=== PATIENT | female | born 1950 | race Caucasian/White ===

== ENCOUNTER 2018-02-08 13:14 | Inpatient (IN) | payer MEDICARE ==
[~2018-02-08] VITALS: Ht 177.8 cm; Wt 70.5 kg
--- NOTE | ~2018-02-08 | PR ---
[place], [place] PROGRESS NOTE NAME: SANDRA IVORY UNIT #: [id number] ROOM: 503 DOCTOR: JESSICA DOWNEY,AYDEN BIRTHDATE: [birth year] DOS: 02/15/2018 REASON FOR VISIT: Coagulopathy, paroxysmal atrial fibrillation and valvular heart disease. SUBJECTIVE: The patient is getting better. Denies any chest pain or shortness of breath. She wanted to go home today. Denies any palpations PND. No orthopnea. No nausea, vomiting, diarrhea. No fever and chills. No cough, no hemoptysis. REVIEW OF SYSTEMS: Review of the 10-system negative except as mentioned above. RHYTHM STRIPS: The patient was in more atrial fibrillation on the monitor with controlled ventricular rates. PHYSICAL EXAMINATION: VITAL SIGNS: Blood pressure 122/78, pulse 96, respiratory rate 18, weight 70.5 kilos. GENERAL: Alert, comfortable, in no acute distress. HEENT: Pupils are round and equal. No jaundice. NECK: Supple. The patient had a slightly elevated JVD, no carotid bruit. CHEST: Nontender. LUNGS: Clear to auscultation bilaterally. HEART: Irregular, no S3, grade 2/6 systolic murmur. No palpable thrills. ABDOMEN: Benign, nontender. Bowel sounds normal. EXTREMITIES: Showed 1+ edema, left leg. Distal pulses are palpable. SKIN: Warm and dry. No cyanosis, no clubbing. RECTAL: Deferred. GENITOURINARY: Deferred. MEDICATIONS AND ALLERGIES: Reviewed. IMAGING: Echo from 02/12/2018 reviewed. IMPRESSION: 1. Coagulopathy. 2. Left leg deep venous thrombosis. 3. Left ventricular dysfunction by recent echo. 4. Valvular heart disease with severe mitral and tricuspid regurgitation. 5. Pulmonary hypertension. 6. End-stage renal disease, on hemodialysis. 7. Anemia. 8. History of vasculitis with positive ANCA. RECOMMENDATIONS: 1. Clinically, she appears to be stable. 2. I will discontinue her Cardizem due to LV dysfunction. 3. Increase her beta-blockers and monitor blood pressure and heart rates. 4. Add low-dose JESSICA inhibitors for LV dysfunction. 5. Keep the INR in the therapeutic range for her atrial fibrillation and DVT. [place], [place] PROGRESS NOTE NAME: SANDRA IVORY UNIT #: [id number] ROOM: [facility] DOCTOR: JESSICA DOWNEY,AYDEN BIRTHDATE: [birth year] 6. I would discuss with her tomorrow for LifeVest and also referral to [facility] for significant valvular heart disease. 7. There is no family at bedside at the time of examination. AYDEN LOPEZ MD CM:PNTRANS 8 AYDEN LOPEZ MD 02/16/188 interface
--- NOTE | ~2018-02-08 | PR ---
[place], [place] PROGRESS NOTE NAME: SANDRA IVORY UNIT #: [id number] ROOM: 503 DOCTOR: ENIO CANTU MD BIRTHDATE: [birth year] DOS: 02/13/2018 NEPHROLOGY FOLLOWUP NOTE SUBJECTIVE: The patient was seen and examined. She was awake and alert. She just completed dialysis. She tells me her breathing has improved significantly. She is on room air. She had a CTA which was negative for PE today. She is in no acute distress and hopes to go home even today. PHYSICAL EXAMINATION: VITAL SIGNS: Temperature 98.2, pulse 92, respiratory rate 20. Systolic blood pressures in the 110s. GENERAL: She is awake and alert, in no acute distress. HEENT: Shows no JVD. LUNGS: Had diminished breath sounds with no wheeze. HEART: S1, S2. No rub, thrill or gallop. ABDOMEN: Soft, nontender. EXTREMITIES: Had 1+ edema. SKIN: Showed no rash. LABORATORY DATA: INR was 1.8. CT scan of the chest showed no evidence of a pulmonary embolism. It did note moderate sized bilateral pleural effusions. ASSESSMENT AND PLAN: 1. Acute kidney injury, on dialysis Thursday and Thursday. It is unclear if the patient is now considered end-stage renal disease at this point. She has a history of an ANCA vasculitis. The patient will continue dialysis on Thursday and Thursday. She completed dialysis today. Diuretics can continue since she does still make urine. 2. Anemia. Transfuse as needed. 3. Atrial fibrillation. Cardiology is managing. 4. Recent chest discomfort with dyspnea. Her CTA was negative for pulmonary embolism. The patient reports to me that she may be having an IVC filter. I am not clear of details. She is on anticoagulation presently. [place], [place] PROGRESS NOTE NAME: SANDRA IVORY UNIT #: [id number] ROOM: 503 DOCTOR: ENIO CANTU MD BIRTHDATE: [birth year] ENIO CANTU MD CM:PNTRANS [phone] ENIO CANTU MD 02/14/18 0229 interface
--- NOTE | ~2018-02-08 | PR ---
[place], [place] PROGRESS NOTE NAME: SANDRA IVORY UNIT #: [id number] ROOM: 503 DOCTOR: ENIO CANTU MD BIRTHDATE: [birth year] DOS: 02/14/2018 SUBJECTIVE: The patient was seen and examined. She is awake and alert. She denies shortness of breath or chest pain. She states she feels well. She has good appetite. She wants to go home. OBJECTIVE: VITAL SIGNS: Temperature 97.5, pulse 81, respiratory rate 20, blood pressure 116/63. HEENT: Shows no JVD. LUNGS: Fairly clear with diminished breath sounds at the bases. HEART: S1, S2. No rub, thrill or gallop. ABDOMEN: Soft, nontender. EXTREMITIES: Had trace to 1+ edema. SKIN: Showed no rash. LABORATORY DATA: Hemoglobin 9.3, white count of 4.6, platelets 193. Sodium 138, potassium 3.6, BUN 12, creatinine 2.2, calcium 8.6. ASSESSMENT AND PLAN: 1. Acute on chronic kidney disease with a question of end-stage renal disease. The patient is on dialysis Thursday and Thursday. She has a history of ANCA vasculitis. The patient will continue dialysis on Thursday and Thursday. Diuretics ongoing, she does still produce urine. 2. Anemia. Transfuse as needed. As needed ESAs if indicated; however, can consider holding them altogether at this point. This should be deferred to Hematology. 3. Atrial fibrillation, per Cardiology. 4. Recent chest discomfort with dyspnea. This has improved and essentially resolved. The patient remains on anticoagulation. There is a question whether or not she can be on Eliquis. I stated that Coumadin is the anticoagulation of choice in a dialysis patient, however, Eliquis has been used in dialysis patients and it would be a reasonable option. [place], [place] PROGRESS NOTE NAME: SANDRA IVORY UNIT #: [id number] ROOM: 503 DOCTOR: ENIO CANTU MD BIRTHDATE: [birth year] ENIO CANTU MD CM:PNTRANS [phone] ENIO CANTU MD 02/15/18 0251 interface
--- NOTE | ~2018-02-08 | PR ---
[place], [place] PROGRESS NOTE [id number] UNIT #: [id number] ROOM: 503 DOCTOR: TALYA TYLER MD BIRTHDATE: [birth year] DOS: 02/12/2018 SUBJECTIVE: The patient was seen today 02/12/2018 at her bedside for followup of her atrial fibrillation with rapid ventricular response. She is a 67-year-old woman who developed ANCA vasculitis several months ago, she developed renal failure and is now on dialysis. At about the same time, she did develop atrial fibrillation. She has been hospitalized on numerous occasions for management of her vasculitis along with treatment of atrial fibrillation with rapid ventricular response. She was anticoagulated with Coumadin and came into the hospital on this occasion because her INR was extremely high. It was also noted that her heart rate was increased. On admission, the patient did note that her legs were quite swollen. We subsequently determined that she does have bilateral DVTs. She does complain of significant dyspnea and I think that it is very likely that she has pulmonary emboli, but we have been unable to document this because of her inability to lay flat as well as her claustrophobia. She did not tolerate attempts to do a V/Q scan. As regards to her elevated INR, she was given vitamin K, which resulted in subtherapeutic INR. She was placed on heparin, at which time her legs began to look better. Today, her heart rate was increased and I did add digoxin to her regimen. She now feels much better with a heart rate of about 80 in atrial fibrillation. PHYSICAL EXAMINATION: VITAL SIGNS: Her pulse is 80 and irregularly irregular, blood pressure is 106/71. She is afebrile. NECK: Supple. She has no jugular distention. Carotids are full. LUNGS: Respirations are unlabored. She does have crackles at the left base. She had no presacral edema. HEART: Had an irregularly irregular rhythm without murmurs or gallops. ABDOMEN: Soft and normally active. EXTREMITIES: Showed 2+ edema bilaterally. The patient's chest x-ray today shows vascular congestion without change from previous images. IMPRESSION: 1. Antineutrophil cytoplasmic antibody vasculitis. 2. 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 The patient dialyzes twice a week. 3. Atrial fibrillation with rapid ventricular response. 4. Chest discomfort. Differential diagnosis could be due to atrial fibrillation with rapid ventricular response, heart failure, pulmonary emboli, or possibly even coronary artery disease. For now, she does seem to be better with heart rate control, oxygen, and heparin. I am concerned that she did develop bilateral deep venous thrombosis at a time when her INR was supratherapeutic. I am not sure that we can rely on Coumadin to protect her from embolic phenomena in the future. 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 For now, we will continue to observe her rate. I will review the echocardiogram when it is available. I thank the hospitalist physicians for asking our advice regarding her care. TALYA TYLRE MD CM:PNTRANS [id number] TALYA TYLER MD 02/13/18 0037 interface
--- NOTE | ~2018-02-08 | CON ---
[place], [place] REPORT OF CONSULTATION NAME: SANDRA IVORY UNIT #: [id number] ROOM: 503 DOCTOR: TALYA TYLER MD BIRTHDATE: [birth year] DOS: 02/11/2018 REASON FOR CONSULTATION: Chest discomfort, atrial fibrillation, ANCA vasculitis. HISTORY OF PRESENT ILLNESS: The patient is a 67-year-old woman who tells me that she was completely healthy until a few months ago, when she developed renal failure and was found to have an ANCA vasculitis. She was hospitalized twice in [place] and had to be sent to [facility] for further care. Once was for her ANCA vasculitis and once was for uncontrolled atrial fibrillation. The patient has a history of deep venous thromboses and is on warfarin for anticoagulation. She was seen for followup by her primary physician, Dr. Fierro, who noted that her INR was elevated at 10. He, therefore, requested that the patient be admitted to the hospital for further management. She was hospitalized on 02/08/2018. She was given vitamin K and her warfarin was withheld. She subsequently became subtherapeutic and today her INR is 1.6. The patient has been bridged with IV heparin. Prior to admission, she did notice marked swelling in her legs. Lower extremity venous ultrasound done on this admission shows that she does have bilateral deep venous thromboses. These occurred even while the patient was supratherapeutic with warfarin. From a cardiac point of view, she does have atrial fibrillation with rapid ventricular response. She does note that she has chest heaviness associated with this. This has been present almost constantly for the last few months. She also developed significant orthopnea and cannot lay flat. Today, a V/Q scan was ordered to determine whether she has pulmonary emboli, but the procedure could not be finished because she was too claustrophobic with the ventilation portion of the scan. I think that at this time it is unlikely we can do any kind of stress testing since she cannot lie flat for the imaging. PAST MEDICAL HISTORY: Includes: 1. ANCA vasculitis documented within the last several months. 2. 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 3. Deep venous thrombosis. 4. Atrial fibrillation with rapid ventricular response. 5. Moderate protein-calorie malnutrition. 6. History of appendectomy, partial hysterectomy and a bowel resection. MEDICATIONS: At the time of this dictation include warfarin to maintain an INR between 2 and 3, metoprolol 12.5 mg twice a day, heparin per protocol, diltiazem 120 mg daily, vitamin D 2000 units every day, furosemide 40 mg b.i.d., temazepam 15 mg at bedtime, Zofran 4 mg q. 6 hours p.r.n., [place] 5/325 4 hours p.r.n., acetaminophen 650 mg every 4 hours p.r.n., bisacodyl 5 mg daily p.o. ALLERGIES: The patient lists allergies to PENICILLIN, SULFA, TAPE, DAPSONE, AND LATEX. [place], [place] REPORT OF CONSULTATION NAME: SANDRA IVORY UNIT #: [id number] ROOM: [facility] DOCTOR: TALYA TYLER MD BIRTHDATE: [birth year] FAMILY HISTORY: Positive for atherosclerotic heart disease in her mother who had bypass in her 40s. REVIEW OF SYSTEMS: The patient denies diplopia or loss of vision. She denies focal weakness. She denies lightheadedness or syncope. She denies fevers or chills. She does have chest pressure and orthopnea. She denies nausea or vomiting. She has had mild nosebleeds. She denies hemoptysis or hematemesis. She denies blood in her stools or urine. She denies skin rash aside from bruising. She does have swelling of her legs bilaterally. The remainder of the review of systems is negative except as noted above. SOCIAL HISTORY: The patient denies use of alcohol or cigarettes. PHYSICAL EXAMINATION: GENERAL: The patient is a well-nourished white female, awake, alert and oriented. VITAL SIGNS: Pulse is 120 and irregularly irregular. Blood pressure is 108/91. She is afebrile. She weighs 73.0 kg and has a body mass index of 23.1. HEENT: Normocephalic, atraumatic. Extraocular muscles are intact. Sclerae are clear. Pupils equal, round and react to light. The oral mucosa is moist. Tongue is midline. NECK: Supple. She has no jugular distention. Carotids are full. I heard no bruits. LUNGS: Respirations were slightly labored and became much more labored when she laid down. She does have bibasilar crackles. She has no presacral edema or chest wall tenderness. CARDIOVASCULAR: Her heart has an irregularly irregular rapid rhythm. There are no murmurs or gallops. The PMI is not displaced. She has no precordial heave, lift or thrill. ABDOMEN: Soft and normally active without masses, organomegaly or bruits. EXTREMITIES: Do show swelling and tenderness in the calves and thighs. Pedal pulses are diminished in the feet. LABORATORY DATA: Her electrocardiogram does show atrial fibrillation with a rapid ventricular response and nonspecific ST and T-wave changes. IMPRESSION: 1. ANCA vasculitis. 2. End-stage renal disease due to ANCA vasculitis. The patient dialyzes 2 times a week. 3. Atrial fibrillation with rapid ventricular response. 4. Chest discomfort. The differential diagnosis in this particular patient is quite broad. It could be related to atrial fibrillation with rapid ventricular rate or heart failure. Her chest x-ray does show mild vascular congestion. Pulmonary emboli certainly could contribute to this as well. In addition, she could have atherosclerotic heart disease, since she does have a family history of heart disease in her mother at a young age. PLAN: The patient's management will be very difficult. I am particularly concerned over the fact that she obviously had DVT on admission when her INR was [place], [place] REPORT OF CONSULTATION NAME: SANDRA IVORY UNIT #: [id number] ROOM: [facility] DOCTOR: TALYA TYLER MD BIRTHDATE: [birth year] over 10. This may mean that warfarin is not an adequate anticoagulant for her. Of all the novel oral anticoagulants, apixaban probably has the best experience in end-stage renal disease, but I do not think that any of them has truly been tested in this setting. Rivaroxaban probably is not an ideal agent even though it might be more affordable for the patient. She will be difficult to assess since she is orthopneic and claustrophobic. We will be getting an echocardiogram to look for LV dysfunction, valve problems, and evidence for right heart strain. For now, I think that intravenous heparin and warfarin are our best our allies; however, I think that given the complexity of her illness, she may need to be seen by a endodontic assistant to assist in our ongoing anticoagulation efforts. For now, I will increase her metoprolol to try to slow her heart rate response to the atrial fibrillation and await her echocardiogram. I thank the hospitalist physicians for asking our advice regarding her care. TALYA TYLER MD CM:CONSTR:REPORT OF CONSULTATION 07 02/11/182044 interface
[2018-02-08 14:28] LABS: INTERNATIONAL NORM RATIO 10.6 (2.0-3.5)
[2018-02-08] MEDS ORDERED: COUMADIN2.5 MG PO (17:01)
[2018-02-08] MEDS ORDERED: CARDIZEM CD120 M2 PO (17:01)
[2018-02-08] MEDS ORDERED: Lopressor25 MG PO (17:03)
[2018-02-08] MEDS ORDERED: LASIX40 MG PO (17:03)
[2018-02-08] MEDS ORDERED: ASPIRIN325 M2 PO (17:03)
[2018-02-08 17:32] LABS: BASO % 0.5 % (0.0-1.0); EOS # 0.1 10*3/uL (0.0-0.4); EOS % 0.9 % (1.0-4.0); HEMATOCRIT 34.9 % (37.0-47.0); LYMPH # 1.4 10*3/uL (1.3-4.4); LYMPH % 23.7 % (27.0-41.0); MEAN CELL VOLUME 97.2 fl (81.0-99.0); MEAN CORPUSCULAR HGB 27.9 pg (27.0-31.0); MEAN CORPUSCULAR HGB CONC 28.7 g/dl (33.0-37.0); MEAN PLATELET VOLUME 10.8 fl (9.6-12.3); MONO % 17.4 % (3.0-9.0); NEUT # 3.3 10*3/uL (2.3-7.9); PLATELET COUNT AUTOMATED 191 10*3/uL (130-400); RED BLOOD COUNT 3.59 10*6/uL (4.10-5.10); RED CELL DISTRI WIDTH 19.4 % (0-14.5); WHITE BLOOD COUNT 5.8 10*3/uL (4.8-10.8)
[2018-02-08 17:47] LABS: ALBUMIN 3.2 gm/dl (3.1-4.5); CREATININE 3.7 mg/dL (0.55-1.02); PHOSPHOROUS 4.3 mg/dL (2.5-4.9); POTASSIUM 4.4 mmol/L (3.5-5.1); TOTAL PROTEIN 6.5 gm/dL (6.4-8.2)
[2018-02-08 17:50] LABS: ACT PARTIAL THROMBO TIME 77.9 SECONDS (20.8-31.5)
[2018-02-08 18:01] LABS: INTERNATIONAL NORM RATIO 10.9 (2.0-3.5)
[2018-02-08 20:00] VITALS: BP 108/76
[2018-02-09] VITALS: BP 105/54
[2018-02-09 06:32] LABS: BASO % 0.4 % (0.0-1.0); EOS % 0.1 % (1.0-4.0); HEMATOCRIT 34.1 % (37.0-47.0); HEMOGLOBIN 9.7 g/dl (12.0-16.0); LYMPH # 1.2 10*3/uL (1.3-4.4); LYMPH % 18.3 % (27.0-41.0); MEAN CORPUSCULAR HGB 27.9 pg (27.0-31.0); MEAN CORPUSCULAR HGB CONC 28.4 g/dl (33.0-37.0); MEAN PLATELET VOLUME 11.9 fl (9.6-12.3); MONO % 14.6 % (3.0-9.0); NEUT # 4.4 10*3/uL (2.3-7.9); PLATELET COUNT AUTOMATED 209 10*3/uL (130-400); RED BLOOD COUNT 3.48 10*6/uL (4.10-5.10); RED CELL DISTRI WIDTH 19.4 % (0-14.5); WHITE BLOOD COUNT 6.7 10*3/uL (4.8-10.8)
[2018-02-09 06:38] LABS: ACT PARTIAL THROMBO TIME 50.5 SECONDS (20.8-31.5); INTERNATIONAL NORM RATIO 2.9 (2.0-3.5)
[2018-02-09 06:55] LABS: ALBUMIN 2.9 gm/dl (3.1-4.5); CREATININE 3.92 mg/dL (0.55-1.02); POTASSIUM 4.6 mmol/L (3.5-5.1); TOTAL PROTEIN 6.1 gm/dL (6.4-8.2)
[2018-02-09 07:02] LABS: FREE T4 1.66 ng/dl (0.76-1.46); PHOSPHOROUS 4.7 mg/dL (2.5-4.9); THYROID STIM HORMONE (HS) 1.44 uIU/ml (0.358-4.75)
[2018-02-09 07:31] LABS: VITAMIN D, 25-HYDROXY 16.7 ng/mL (30-100)
[2018-02-09 08:00] VITALS: BP 102/84
[2018-02-09 12:00] VITALS: BP 117/87
[2018-02-09 12:10] VITALS: BP 138/68
[2018-02-09 15:51] VITALS: BP 118/70
[2018-02-09 20:00] VITALS: BP 115/73
[2018-02-10] VITALS: BP 110/71
[2018-02-10 06:44] LABS: INTERNATIONAL NORM RATIO 1.4 (2.0-3.5)
[2018-02-10 08:00] VITALS: BP 112/83
[2018-02-10 11:06] LABS: BASO % 0.5 % (0.0-1.0); EOS % 0.5 % (1.0-4.0); HEMATOCRIT 33.8 % (37.0-47.0); HEMOGLOBIN 9.7 g/dl (12.0-16.0); LYMPH # 1.1 10*3/uL (1.3-4.4); LYMPH % 19.7 % (27.0-41.0); MEAN CELL VOLUME 96.8 fl (81.0-99.0); MEAN CORPUSCULAR HGB 27.8 pg (27.0-31.0); MEAN CORPUSCULAR HGB CONC 28.7 g/dl (33.0-37.0); MEAN PLATELET VOLUME 11.2 fl (9.6-12.3); MONO % 18.1 % (3.0-9.0); NEUT # 3.5 10*3/uL (2.3-7.9); NEUT % 60.7 % (47.0-73.0); PLATELET COUNT AUTOMATED 223 10*3/uL (130-400); RED BLOOD COUNT 3.49 10*6/uL (4.10-5.10); RED CELL DISTRI WIDTH 19.8 % (0-14.5); WHITE BLOOD COUNT 5.7 10*3/uL (4.8-10.8)
[2018-02-10 12:00] VITALS: BP 104/78
[2018-02-10 16:00] VITALS: BP 100/58
[2018-02-10 20:00] VITALS: BP 111/90
[2018-02-11] VITALS: BP 109/90
[2018-02-11 06:11] LABS: INTERNATIONAL NORM RATIO 1.6 (2.0-3.5)
[2018-02-11 06:15] LABS: ACT PARTIAL THROMBO TIME 120.4 SECONDS (20.8-31.5)
[2018-02-11 08:00] VITALS: BP 96/64
[2018-02-11 12:00] VITALS: BP 114/73
[2018-02-11 16:00] VITALS: BP 108/91
[2018-02-11 20:00] VITALS: BP 99/66
[2018-02-12] VITALS: BP 94/54
[2018-02-12 06:50] LABS: INTERNATIONAL NORM RATIO 1.9 (2.0-3.5)
[2018-02-12 08:00] VITALS: BP 110/83
[2018-02-12 12:00] VITALS: BP 106/71
[2018-02-12 16:00] VITALS: BP 121/100; BP 128/82
[2018-02-12 20:00] VITALS: BP 133/52
[2018-02-13] VITALS: BP 116/75
[2018-02-13 06:07] LABS: ACT PARTIAL THROMBO TIME 82.8 SECONDS (20.8-31.5); INTERNATIONAL NORM RATIO 1.8 (2.0-3.5)
[2018-02-13 08:00] VITALS: BP 132/42
[2018-02-13 13:39] VITALS: BP 109/66
[2018-02-13 14:00] VITALS: BP 109/62
[2018-02-13 16:00] VITALS: BP 96/54
[2018-02-13 20:00] VITALS: BP 117/95
[2018-02-14] VITALS: BP 108/78
[2018-02-14 06:35] LABS: BASO % 0.4 % (0.0-1.0); EOS % 0.9 % (1.0-4.0); HEMATOCRIT 31.9 % (37.0-47.0); HEMOGLOBIN 9.3 g/dl (12.0-16.0); LYMPH # 1.3 10*3/uL (1.3-4.4); LYMPH % 28.3 % (27.0-41.0); MEAN CELL VOLUME 94.9 fl (81.0-99.0); MEAN CORPUSCULAR HGB 27.7 pg (27.0-31.0); MEAN CORPUSCULAR HGB CONC 29.2 g/dl (33.0-37.0); MEAN PLATELET VOLUME 10.8 fl (9.6-12.3); MONO # 0.8 10*3/uL (0.1-1.0); MONO % 18.4 % (3.0-9.0); NEUT # 2.3 10*3/uL (2.3-7.9); NEUT % 51.1 % (47.0-73.0); PLATELET COUNT AUTOMATED 193 10*3/uL (130-400); RED BLOOD COUNT 3.36 10*6/uL (4.10-5.10); RED CELL DISTRI WIDTH 19.5 % (0-14.5); WHITE BLOOD COUNT 4.6 10*3/uL (4.8-10.8)
[2018-02-14 06:56] LABS: CREATININE 2.23 mg/dL (0.55-1.02); POTASSIUM 3.6 mmol/L (3.5-5.1)
[2018-02-14 08:00] VITALS: BP 119/78
[2018-02-14 12:00] VITALS: BP 116/63
[2018-02-14 16:00] VITALS: BP 101/55
[2018-02-14 20:00] VITALS: BP 102/59
[2018-02-15] VITALS: BP 107/73
[2018-02-15 07:58] LABS: BASO % 0.8 % (0.0-1.0); EOS # 0.1 10*3/uL (0.0-0.4); EOS % 1.2 % (1.0-4.0); LYMPH # 1.5 10*3/uL (1.3-4.4); LYMPH % 28.4 % (27.0-41.0); MEAN CELL VOLUME 97.5 fl (81.0-99.0); MEAN CORPUSCULAR HGB 27.9 pg (27.0-31.0); MEAN CORPUSCULAR HGB CONC 28.6 g/dl (33.0-37.0); MEAN PLATELET VOLUME 10.3 fl (9.6-12.3); MONO % 19.8 % (3.0-9.0); NEUT # 2.5 10*3/uL (2.3-7.9); NEUT % 49.2 % (47.0-73.0); PLATELET COUNT AUTOMATED 206 10*3/uL (130-400); RED BLOOD COUNT 3.59 10*6/uL (4.10-5.10); RED CELL DISTRI WIDTH 19.4 % (0-14.5); WHITE BLOOD COUNT 5.1 10*3/uL (4.8-10.8)
[2018-02-15 08:00] VITALS: BP 122/78
[2018-02-15 08:23] LABS: ALBUMIN 2.9 gm/dl (3.1-4.5); CREATININE 3.11 mg/dL (0.55-1.02); PHOSPHOROUS 3.5 mg/dL (2.5-4.9); POTASSIUM 3.9 mmol/L (3.5-5.1)
[2018-02-15 08:24] LABS: INTERNATIONAL NORM RATIO 1.6 (2.0-3.5)
[2018-02-15 12:00] VITALS: BP 110/84
[2018-02-15 16:00] VITALS: BP 109/67
[2018-02-15 20:00] VITALS: BP 112/63
[2018-02-16] VITALS: BP 120/73
== END 2018-02-16 01:29 | disposition short-term general hospital (02) | DRG 299 ==
LOC: LAB 13:14 → 5E 16:03
PROVIDERS: Family Medicine; Internal Medicine; Registered Nurse
PROC: 5A1D70Z Performance of Urinary Filtration, Intermittent, Less than 6 Hours Per Day (ICD-10-PCS; principal; 2018-02-09)
PROC: 5A1D70Z Performance of Urinary Filtration, Intermittent, Less than 6 Hours Per Day (ICD-10-PCS; 2018-02-13)
DX: I82.403 Acute embolism and thrombosis of unspecified deep veins of lower extremity, bilateral (principal); N18.6 End stage renal disease; N17.9 Acute kidney failure, unspecified; E44.0 Moderate protein-calorie malnutrition; I50.9 Heart failure, unspecified; I27.20 Pulmonary hypertension, unspecified; E83.41 Hypermagnesemia; I48.0 Paroxysmal atrial fibrillation; I08.1 Rheumatic disorders of both mitral and tricuspid valves; I48.2 Chronic atrial fibrillation; R17 Unspecified jaundice; Z51.5 Encounter for palliative care; D64.9 Anemia, unspecified; F40.240 Claustrophobia; Z66 Do not resuscitate; I77.6 Arteritis, unspecified; R79.1 Abnormal coagulation profile; Z86.718 Personal history of other venous thrombosis and embolism; Z90.49 Acquired absence of other specified parts of digestive tract; Z90.710 Acquired absence of both cervix and uterus; Z80.9 Family history of malignant neoplasm, unspecified; Z82.49 Family history of ischemic heart disease and other diseases of the circulatory system; Z88.0 Allergy status to penicillin; Z88.2 Allergy status to sulfonamides; Z88.8 Allergy status to other drugs, medicaments and biological substances; Z91.048 Other nonmedicinal substance allergy status; Z79.82 Long term (current) use of aspirin; Z79.01 Long term (current) use of anticoagulants; Z79.899 Other long term (current) drug therapy; Z68.23 Body mass index [BMI] 23.0-23.9, adult

== ENCOUNTER 2018-05-08 10:55 | Inpatient (IN) | payer MEDICARE ==
[~2018-05-08] VITALS: Ht 177.8 cm; Wt 67.3 kg
--- NOTE | ~2018-05-08 | WRIGHTHP ---
[place], [place] PATIENT HISTORY AND PHYSICAL EXAM [id number] UNIT #: [id number] ROOM: 416 DOCTOR: NOHEMY BUSTILLO MD BIRTHDATE: [birth year] DOS: 05/08/2018 HISTORY OF PRESENT ILLNESS: The patient has been admitted to hospital yesterday with history of shortness of breath with cough and difficulty in breathing and had also fever and chills as she has not been feeling good for the last 4-5 days, progressively getting worse and she was advised by Dr. Fierro to be admitted to hospital, but he refused to do that, but she became more ill yesterday and then came to Emergency Department from where she has been admitted to the hospital with sepsis with pneumonia, congestive heart failure and renal failure and the patient is feeling slightly better. She is having a lot of cough, bringing up large amount of sputum and having some chest pain due to cough. She denies any pain in her abdomen. No nausea, no vomiting and the patient having some burning sensation on urination. There is no swelling of the legs. ALLERGIES: ALLERGIC TO PENICILLIN, SULFA, TAPE AND DAPSONE. MEDICATIONS: She is taking following medications at present time. Cardizem-CD 120 mg daily, metoprolol 12.5 mg twice daily, Lasix 40 mg twice daily, Coumadin 2.5 mg daily, B complex capsule daily and Tylenol 650 mg twice daily. PAST SURGICAL HISTORY: Appendectomy, bowel resection, partial hysterectomy and also had tumor removed from her uterus and also tonsillectomy. SOCIAL HISTORY: Does not drink any alcohol. Does not smoke. No illicit drug. FAMILY HISTORY: Both mother and father are , coronary heart disease and cancer in the family. PHYSICAL EXAMINATION: GENERAL: The patient is conscious, alert and oriented, sitting comfortably in the bed. VITAL SIGNS: Her blood pressure 100/82, pulse 97, respirations 18, temperature 98.9 and she is 5 feet 10 inches tall, weighing 149 pounds, body mass is 20. HEENT: ENT examination is normal. NECK: Veins are not distended. Carotid pulses are normal. LUNGS: Having bilateral rhonchi and crepitation in both the lungs, worse at the bases. HEART: Regular, somewhat tachycardic. ABDOMEN: Soft. Liver and spleen not palpable. No area of tenderness, no mass palpated. EXTREMITIES: No edema of leg. NEUROLOGIC: No neurological deficit observed. LABORATORY DATA: Her CBC shows white count 7900, hemoglobin 14 grams, hematocrit 46 and lactic acid 3.5, high. Protime is 38.1, which is high. The patient was taking Coumadin. She was advised to stop Coumadin by Dr. Fierro day before yesterday when her protime was 45 and it is coming down. Comprehensive metabolic profile showed glucose 97, BUN 47, creatinine 4.44, GFR 10, indicating renal failure. Chest x-ray shows vascular congestion improved as compared to [place], [place] PATIENT HISTORY AND PHYSICAL EXAM NAME: SANDRA IVORY UNIT #: [id number] ROOM: 416 DOCTOR: NOHEMY BUSTILLO MD BIRTHDATE: [birth year] 02/12/2018. Stable extensive chronic lung disease with underlying emphysema and difficulty to exclude superimposed pneumonia. Urine examination shows 3+ blood, 2+ protein, 2+ leukocyte esterase, and 3+ bacteria. Repeat lactic acid is 1.8. Protime today is 30.1. DIAGNOSES: Sepsis with acute lung infection complicating chronic obstructive pulmonary disease with emphysema and with urinary tract infection, chronic renal failure. PLAN OF TREATMENT: The patient will be admitted to hospital, receive antibiotic, blood culture and sensitivity and urine culture and sensitivity and will be watched closely. NOHEMY BUSTILLO MD CM:HISPHYS:PATIENT HISTORY AND PHYSICAL EXAMINATION [phone] NOHEMY BUSTILLO MD 05/09/18817 interface
--- NOTE | ~2018-05-08 | CON ---
[place], [place] REPORT OF CONSULTATION NAME: SANDRA IVORY UNIT #: [id number] ROOM: 416 DOCTOR: ENIO CANTU MD BIRTHDATE: [birth year] DOS: 05/09/2018 REASON FOR CONSULTATION: Management of dialysis/patient known to you. HISTORY OF PRESENT ILLNESS: This is a 67-year-old female with history of end-stage renal disease. Seems she only undergoes dialysis twice a week at [facility] in [place]. She missed her treatment earlier this week. She came in yesterday short of breath. There were concerns for CHF versus an infectious process such as pneumonia. She has had continued cough with some sputum. We were called about the consult yesterday. Orders were given to the dialysis nurse to perform treatment, which she had not since she improved over the past 24 hours in her symptoms. The patient gives a history of a vasculitis. She was on immunosuppression in the past, but I am not clear of the details of this. She did not recover her renal function to come off dialysis. Currently, she denied nausea or vomiting, fevers or chills. ALLERGIES: LISTED PENICILLIN, SULFA DRUGS, TAPE AND DAPSONE. MEDICATIONS: Cardizem CD, metoprolol, Lasix, Coumadin, vitamin, Tylenol. PAST MEDICAL HISTORY: 1. History of ANCA positive vasculitis with acute kidney injury, now dialysis dependent, ESRD, on hemodialysis; twice a week through tunneled dialysis catheter placement. 2. Hypertension. 3. Anemia. 4. Appendectomy. 5. Bowel resection. 6. Partial hysterectomy. 7. History of tonsillectomy. 8. Atrial fibrillation. 9. History of DVT. FAMILY HISTORY: Negative for chronic kidney disease, otherwise, noncontributory. SOCIAL HISTORY: No current tobacco, alcohol or illicit drugs. REVIEW OF SYSTEMS: As per HPI, otherwise, a 10-point review of systems was reviewed and was negative. PHYSICAL EXAMINATION: VITAL SIGNS: Temperature is afebrile, pulse 110, respiratory rate 16. Systolic blood pressures were in the 90s to 100s. GENERAL: She is alert, awake, oriented x 3, in no acute distress. HEENT: Shows no JVD. Sclerae are anicteric. Mucous membranes are moist. Oropharynx is clear. NECK: Supple. Trachea was midline. There is no neck lymphadenopathy or thyromegaly. LUNGS: Diminished breath sounds with an occasional wheeze. Some rhonchi were [place], [place] REPORT OF CONSULTATION NAME: SANDRA IVORY UNIT #: [id number] ROOM: [facility] DOCTOR: ENIO CANTU MD BIRTHDATE: [birth year] noted. She was not using accessory muscles of respiration. HEART: S1, S2. No rub, thrill or gallop. ABDOMEN: Soft, nontender. There is no organomegaly or rigidity, rebound or guarding. There is no CVA tenderness. EXTREMITIES: Had no edema. There is no lower extremity lymphadenopathy. Distal pulses are 2+. SKIN: Showed no overt rash. There is no petechia or purpura. Skin temperature was warm. NEUROLOGIC: She is awake, alert and following commands. Cranial nerves were intact. DIAGNOSTIC DATA: Chest x-ray was personally reviewed, my interpretation was mild pulmonary congestion, otherwise, seemed clear. BUN 48, creatinine 4.4. Sodium 138, potassium 4.1, calcium 9.3, albumin 3.8, hemoglobin 14.0, white count 7.9, platelets 192. IMPRESSION: 1. End-stage renal disease, on hemodialysis twice a week through a tunneled dialysis catheter. The patient has a history of an ANCA positive vasculitis, previously on immunosuppression. 2. Dyspnea with unclear etiology. Concern for congestive heart failure versus an infectious process. 3. Atrial fibrillation. 4. History of deep venous thrombosis. 5. Questionable urinary tract infection. PLAN: 1. We will continue dialysis twice a week. 2. Dose meds for end-stage renal disease. 3. Antibiotics per the primary service. Urine culture noted for heavy gram-positive cocci. We will await ID. She is on vancomycin presently. Would dose per the pharmacy. Would follow levels. 4. Continue ongoing supportive care. ENIO CANTU MD CM:CONSTR:REPORT OF CONSULTATION 180 05/09/18 2235 interface
--- NOTE | ~2018-05-08 | CON ---
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 She now dialyzes twice a day. She also has severe cardiomyopathy and an echocardiogram last month had demonstrated an LV ejection fraction of about 25% with moderately dilated LV cavity. I reviewed the images. She also had significant biatrial enlargement. She has had congestive heart failure, slight volume overloaded and has had weakness. She has never had a stroke, a known heart attack, diabetes or COPD. She has never smoked cigarettes, although her parents did. She has been now treated with antibiotics and came in because of increasing shortness of breath and a harsh cough. She had some chills as well. While here, she was noted to have persistent atrial fibrillation with rapid ventricular rate and I was asked to evaluate her. CURRENT MEDICATIONS: Diltiazem 120 mg daily, and metoprolol 12.5 mg b.i.d. Other medications now include vancomycin, Merrem, albuterol aerosol treatments, acetaminophen, folic acid, furosemide 40 mg b.i.d. and warfarin. PHYSICAL EXAMINATION: GENERAL: This is a patient who is very pleasant. She is alert, oriented, complexion appears normal. She is afebrile. There is no thyromegaly or finger clubbing. She is not jaundiced or cyanotic. VITAL SIGNS: Pulse is irregular at 140 per minute, blood pressure 104/78. NECK: JVP is about +10 cm with positive AJR. No carotid bruits present. HEART: Auscultation reveals no murmurs or rub. Her heart rate is very fast at around 140 beats per minute. EXTREMITIES: She has 1+ pretibial edema. The feet are dusky and with slow filling. Pedal pulses are difficult to appreciate. RESPIRATORY: She is mildly tachypneic. Breath sounds are diminished with lots of rhonchi and crackles in both lungs. ABDOMEN: Supple, nontender. LABORATORY DATA: An ECG showed atrial fibrillation with rapid ventricular rate. Chest x-ray does demonstrate diffuse abnormality in both lungs. Monitor now shows atrial fibrillation with ventricular rate in the 130s. I reviewed her echocardiogram from last month. It demonstrated an LV ejection fraction of about 25% and at least moderately dilated LV cavity, biatrial enlargement. IMPRESSION: 1. Severe cardiomyopathy, underlying etiology has not been elucidated. It is quite possible that she had atrial fibrillation with rapid rate for many weeks, which led to a tachycardia-induced cardiomyopathy. The second possibility is [place], [place] REPORT OF CONSULTATION NAME: SANDRA IVORY UNIT #: [id number] ROOM: [facility] DOCTOR: LUCIA HALLMAN MD BIRTHDATE: [birth year] underlying ischemic heart disease. Her mother was 40 when she had bypass surgery. 2. She has atrial fibrillation with very rapid ventricular rate. This needs to be controlled very strictly and LV function may improve with controlled ventricular rate. 3. End-stage renal disease, is said to be from ANCA vasculitis. RECOMMENDATIONS: 1. Discontinue Cardizem 120 since this is a negative inotropic drug. 2. Increase metoprolol to 25 mg b.i.d., IV dose will also be given to control the rate if blood pressure is over 85 mmHg. 3. She is being given IV digoxin and then 125 mcg of digoxin every other day, digoxin level will be done in about 3-4 days. 4. Since she still has some function of the kidneys, she does not wish to undergo a heart catheterization since it can result in complete kidney shutdown. I discussed this with her. I think an alternative approach is to perform a Lexiscan Cardiolite study before she leaves the hospital to see if there is a significant myocardial ischemia. If such happened in the case, then one can revisit the issue of a selective coronary angiogram. If her LV ejection fraction remains low, i.e., below 35 in about 3 months, she probably will require a serious consideration for an AICD implantation, but of course for those 3 months, she will have to wear a LifeVest while the heart rate is well controlled and she is on appropriate medications, which should also include an JESSICA inhibitor. I thank you for this consult. LUCIA HALLMAN MD CM:CONSTR:REPORT OF CONSULTATION 1815 05/11/18 0804 interface
--- NOTE | ~2018-05-08 | CON ---
[place], [place] REPORT OF CONSULTATION NAME: SANDRA IVORY UNIT #: [id number] ROOM: 416 DOCTOR: MEL DOWNEYEMILIA BIRTHDATE: [birth year] DOS: 05/11/2018 HISTORY OF PRESENT ILLNESS: The patient apparently is a 67-year-old with a history of end-stage renal disease, on dialysis. The patient had missed her treatment earlier this week and came in with increasing shortness of breath. This looks more of volume overload secondary to not having the dialysis and congestive heart failure. The patient does have a history of systolic dysfunction. The last ejection fraction of 30% with severe mitral and tricuspid regurgitation. The patient has been dialyzed and breathing somewhat better, seen by the editor in chief newspaper also. No chest discomfort. PAST MEDICAL HISTORY: She has history of vasculitis, hypertension, atrial fibrillation, and history of DVT. PAST SURGICAL HISTORY: She has appendectomy, bowel resection, and history of tonsillectomy, MEDICATIONS: She is on Cardizem-CD, metoprolol, Lasix, Coumadin, vitamin, and Tylenol. SOCIAL HISTORY: She denies any alcohol or tobacco. FAMILY HISTORY: Positive for coronary artery disease. REVIEW OF SYSTEMS: As per HPI; otherwise, 10-point review of systems are reviewed and are negative. PHYSICAL EXAMINATION: GENERAL: The patient is alert, oriented. She is in atrial fibrillation. VITAL SIGNS: Blood pressure is 96/78 and heart rate is 170. LUNGS: Diminished breath sounds. CARDIAC: Irregularly irregular. EXTREMITIES: Positive erythema. No clubbing. LABORATORY DATA: Sodium is 140, potassium is 4.2, and creatinine is 3.7. Hemoglobin is 12.1 and hematocrit is 39.9. IMAGING DATA: CT scan showed multilobar pneumonia. IMPRESSION: End-stage renal disease, volume overload secondary to renal dysfunction; pneumonia, chronic atrial fibrillation, history of deep vein thrombosis, and questionable urinary tract infection. RECOMMENDATIONS: Continue the present medications as ordered. The patient is already on antibiotics. She is on Lopressor and digoxin. She is also on Coumadin. She is unable to use the JESSICA inhibitor secondary to renal dysfunction. The patient is already on p.o. Lasix also. We will follow up. [place], [place] REPORT OF CONSULTATION NAME: SANDRA IVORY UNIT #: [id number] ROOM: 416 DOCTOR: EMILIA LEAL MD BIRTHDATE: [birth year] EMILIA LEAL MD CM:CONSTR:REPORT OF CONSULTATION 2 05/11/18 0912 interface
--- NOTE | ~2018-05-08 | EKG ---
[place], [place] ELECTROCARDIOGRAM REPORT NAME: SANDRA IVORY UNIT #: [id number] ROOM: 416 DOCTOR: RAMYA DRAFT REPORT BIRTHDATE: [birth year] [facility] Test Date: 2018-05-08 Test Time: 11:24:01 Pat Name: SANDRA IVORY Department: Room: 416 Gender: F Technical Applications Scientist: ELVIA : 1950 Requested By: DEE MCARTHUR Order Number: [id number] Reading MD: Ed Denney MD Measurements Intervals [place] Rate: 121 P: [place]: QRS: 17 QRSD: 65 T: -58 QT: 332 QTc: 471 Interpretive Statements Atrial fibrillation with RVR Borderline repolarization abnormality Electronically Signed On 05-09-2018 10:31:46 PDT by Ed Denney MD CM:EKGRPT:ELECTROCARDIOGRAM REPORT [id number] 1031 DEE BUI DRAFT REPORT DEE MCARTHUR
[~2018-05-08 10:55] MED LIST: ASPIRIN325 M2 PO; CARDIZEM CD120 M2 PO; COUMADIN2.5 MG PO; LASIX40 MG PO; Lopressor25 MG PO
[2018-05-08 11:00] VITALS: BP 110/69
[2018-05-08 11:39] LABS: BASO % 0.4 % (0.0-1.0); EOS # 0.1 10*3/uL (0.0-0.4); EOS % 0.8 % (1.0-4.0); LYMPH # 1.2 10*3/uL (1.3-4.4); LYMPH % 15.1 % (27.0-41.0); MEAN CELL VOLUME 94.1 fl (81.0-99.0); MEAN CORPUSCULAR HGB 28.6 pg (27.0-31.0); MEAN CORPUSCULAR HGB CONC 30.4 g/dl (33.0-37.0); MEAN PLATELET VOLUME 12.2 fl (9.6-12.3); MONO # 0.9 10*3/uL (0.1-1.0); MONO % 11.3 % (3.0-9.0); NEUT # 5.7 10*3/uL (2.3-7.9); NEUT % 72.1 % (47.0-73.0); PLATELET COUNT AUTOMATED 192 10*3/uL (130-400); RED BLOOD COUNT 4.89 10*6/uL (4.10-5.10); RED CELL DISTRI WIDTH 17.7 % (0-14.5); WHITE BLOOD COUNT 7.9 10*3/uL (4.8-10.8)
[2018-05-08 11:46] LABS: INTERNATIONAL NORM RATIO 3.5 (2.0-3.5)
[2018-05-08 11:55] LABS: ALBUMIN 3.8 gm/dl (3.1-4.5); ALKALINE PHOSPHATASE 80 U/L (45-117); BUN 48 mg/dl (7-24); CHLORIDE 100 mmol/L (98-107); CREATININE 4.44 mg/dL (0.55-1.02); POTASSIUM 4.1 mmol/L (3.5-5.1); SGOT/AST 19 IU/L (3-35); SGPT/ALT 35 U/L (12-78); SODIUM 138 mmol/L (136-145); TOTAL PROTEIN 7.7 gm/dL (6.4-8.2)
[2018-05-08 11:56] LABS: TROPONIN I < 0.015 ng/ml (<0.045)
[2018-05-08 12:32] VITALS: BP 108/81
[2018-05-08 12:33] LABS: BILIRUBIN 1+ (NEGATIVE); BLOOD 3+ (NEGATIVE); CLARITY CLOUDY (CLEAR); COLOR YELLOW (YELLOW); GLUCOSE NEGATIVE (NEGATIVE); KETONE NEGATIVE (NEGATIVE); LEUKO ESTERASE 2+ (NEGATIVE); NITRITE NEGATIVE (NEGATIVE); SPECIFIC GRAVITY 1.025 (1.005-1.030); UROBILINOGEN 0.2 E.U./dl (0.2-1.0)
[2018-05-08 12:39] LABS: RBC TNTC rbc/hpf (0-2)
[2018-05-08 12:41] LABS: BACTERIA 3+; WBC 41-50 wbc/hpf (0-5); YEAST 2+
[2018-05-08] MEDS ORDERED: COUMADIN2.5 M1 PO (12:51)
[2018-05-08] MEDS ORDERED: TRIPHROCAPS SOFT1 MG PO (12:53)
[2018-05-08] MEDS ORDERED: MAPAP325 MG PO (12:53)
[2018-05-08 13:02] VITALS: BP 111/82
[2018-05-08 13:46] VITALS: BP 111/80
[2018-05-08 14:05] VITALS: BP 113/76
[2018-05-08 16:00] VITALS: BP 104/76
[2018-05-09] VITALS: BP 102/82
[2018-05-09 06:46] LABS: INTERNATIONAL NORM RATIO 2.8 (2.0-3.5)
[2018-05-09 12:00] VITALS: BP 88/46
[2018-05-09 16:00] VITALS: BP 90/51
[2018-05-09 20:00] VITALS: BP 94/66
[2018-05-10] VITALS: BP 102/55
[2018-05-10 05:44] LABS: BASO % 0.5 % (0.0-1.0); EOS # 0.3 10*3/uL (0.0-0.4); EOS % 4.9 % (1.0-4.0); HEMOGLOBIN 12.1 g/dl (12.0-16.0); LYMPH # 1.6 10*3/uL (1.3-4.4); LYMPH % 24.4 % (27.0-41.0); MEAN CELL VOLUME 93.7 fl (81.0-99.0); MEAN CORPUSCULAR HGB 28.4 pg (27.0-31.0); MEAN CORPUSCULAR HGB CONC 30.3 g/dl (33.0-37.0); MONO % 15.5 % (3.0-9.0); NEUT # 3.5 10*3/uL (2.3-7.9); NEUT % 54.5 % (47.0-73.0); PLATELET COUNT AUTOMATED 145 10*3/uL (130-400); RED BLOOD COUNT 4.26 10*6/uL (4.10-5.10); RED CELL DISTRI WIDTH 17.4 % (0-14.5); WHITE BLOOD COUNT 6.3 10*3/uL (4.8-10.8)
[2018-05-10 05:48] LABS: HEMATOCRIT 39.9 % (37.0-47.0)
[2018-05-10 06:00] LABS: BUN 42 mg/dl (7-24); CHLORIDE 103 mmol/L (98-107); CREATININE 3.77 mg/dL (0.55-1.02); PHOSPHOROUS 4.9 mg/dL (2.5-4.9); POTASSIUM 4.2 mmol/L (3.5-5.1); SODIUM 140 mmol/L (136-145)
[2018-05-10 06:15] LABS: TROPONIN I < 0.015 ng/ml (<0.045)
[2018-05-10 06:19] LABS: INTERNATIONAL NORM RATIO 2.6 (2.0-3.5)
[2018-05-10 08:41] VITALS: BP 102/56
[2018-05-10 12:00] VITALS: BP 96/78
[2018-05-10 16:00] VITALS: BP 104/78
[2018-05-10 18:28] VITALS: BP 112/68
[2018-05-10 20:00] VITALS: BP 100/70
[2018-05-11] VITALS (7 sets, daily range): BP systolic 94–114; BP diastolic 52–83
[2018-05-11 06:44] LABS: INTERNATIONAL NORM RATIO 2.9 (2.0-3.5)
[2018-05-11 06:49] LABS: ALBUMIN 3.1 gm/dl (3.1-4.5); CREATININE 3.79 mg/dL (0.55-1.02); PHOSPHOROUS 4.2 mg/dL (2.5-4.9); POTASSIUM 3.8 mmol/L (3.5-5.1)
[2018-05-12] VITALS: BP 122/77
[2018-05-12 04:00] VITALS: BP 110/58
[2018-05-12 06:27] LABS: ALBUMIN 2.7 gm/dl (3.1-4.5); CREATININE 2.45 mg/dL (0.55-1.02); PHOSPHOROUS 3.4 mg/dL (2.5-4.9); POTASSIUM 3.9 mmol/L (3.5-5.1)
[2018-05-12 06:36] LABS: INTERNATIONAL NORM RATIO 2.6 (2.0-3.5)
[2018-05-12 08:00] VITALS: BP 114/60
[2018-05-12] MEDS ORDERED: LEVAQUIN750 M1 PO (11:36)
[2018-05-12] MEDS ORDERED: LOPRESSOR25 MG PO (11:36)
[2018-05-12 12:00] VITALS: BP 90/57
== END 2018-05-12 12:52 | disposition home or self-care (01) | DRG 871 ==
LOC: ED 10:55 → EDHOLD 12:41 → 4E 12:41
PROVIDERS: Internal Medicine; Nurse Practitioner Family; Student in an Organized Health Care Education/Training Program
PROC: 5A1D70Z Performance of Urinary Filtration, Intermittent, Less than 6 Hours Per Day (ICD-10-PCS; principal; 2018-05-08)
PROC: 5A1D70Z Performance of Urinary Filtration, Intermittent, Less than 6 Hours Per Day (ICD-10-PCS; 2018-05-11)
DX: A41.9 Sepsis, unspecified organism (principal); N18.6 End stage renal disease; I50.43 Acute on chronic combined systolic (congestive) and diastolic (congestive) heart failure; J18.1 Lobar pneumonia, unspecified organism; N39.0 Urinary tract infection, site not specified; E44.0 Moderate protein-calorie malnutrition; I13.2 Hypertensive heart and chronic kidney disease with heart failure and with stage 5 chronic kidney disease, or end stage renal disease; I42.9 Cardiomyopathy, unspecified; M30.0 Polyarteritis nodosa; J44.0 Chronic obstructive pulmonary disease with (acute) lower respiratory infection; I73.9 Peripheral vascular disease, unspecified; L92.9 Granulomatous disorder of the skin and subcutaneous tissue, unspecified; I48.2 Chronic atrial fibrillation; B95.2 Enterococcus as the cause of diseases classified elsewhere; E83.41 Hypermagnesemia; Z99.2 Dependence on renal dialysis; Z88.0 Allergy status to penicillin; Z88.2 Allergy status to sulfonamides; Z88.8 Allergy status to other drugs, medicaments and biological substances; Z91.048 Other nonmedicinal substance allergy status; Z79.899 Other long term (current) drug therapy; Z90.49 Acquired absence of other specified parts of digestive tract; Z90.710 Acquired absence of both cervix and uterus; Z82.49 Family history of ischemic heart disease and other diseases of the circulatory system; Z80.9 Family history of malignant neoplasm, unspecified; Z86.718 Personal history of other venous thrombosis and embolism; Z79.01 Long term (current) use of anticoagulants; Z68.20 Body mass index [BMI] 20.0-20.9, adult

== ENCOUNTER → 2018-05-24 | Outpatient (CLI) | payer MEDICARE ==
[~2018-05-24] MED LIST changes: +COUMADIN2.5 M1 PO; +LEVAQUIN750 M1 PO; +LOPRESSOR25 MG PO; +MAPAP325 MG PO; +TRIPHROCAPS SOFT1 MG PO
== END | disposition home or self-care (01) ==
LOC: RAD 11:38
DX: J44.9 Chronic obstructive pulmonary disease, unspecified (principal); I51.7 Cardiomegaly

== ENCOUNTER 2018-08-13 12:46 | Inpatient (IN) | payer MEDICARE ==
[~2018-08-13] VITALS: Ht 167.6 cm; Wt 89.8 kg
--- NOTE | ~2018-08-13 | EKG ---
[place], [place] ELECTROCARDIOGRAM REPORT NAME: SANDRA IVORY UNIT #: [id number] ROOM: 408 DOCTOR: RAMYA DRAFT REPORT BIRTHDATE: [birth year] [facility] Test Date: 2018-08-13 Test Time: 12:55:39 Pat Name: SANDRA IVORY Department: Room: 408 Gender: F Airport Ramp Supervisor: Carolina Cadena : 1950 Requested By: EASTON ONEIL Order Number: [id number] Reading MD: Franklin Fierro MD Measurements Intervals [place] Rate: 116 P: OR: QRS: 27 QRSD: 88 T: 19 QT: 361 QTc: 502 Interpretive Statements Atrial fibrillation Borderline T abnormalities, anterior leads Prolonged QT interval Compared to ECG 05/08/2018 11:24:01 T-wave abnormality now present Prolonged QT interval now present Electronically Signed On 08-25-2018 6:36:33 PST by Franklin Fierro MD CM:EKGRPT:ELECTROCARDIOGRAM REPORT [id number] EASTON ARGUELLES DRAFT REPORT EASTON ONEIL DO
--- NOTE | ~2018-08-13 | EKG ---
[place], [place] ELECTROCARDIOGRAM REPORT NAME: SANDRA IVORY UNIT #: [id number] ROOM: 408 DOCTOR: RAMYA DRAFT REPORT BIRTHDATE: [birth year] [facility] Test Date: 2018-08-13 Test Time: 16:28:05 Pat Name: SANDRA IVORY Department: Room: 408 Gender: F Certified Ethical Hacker: 17 : 1950 Requested By: EASTON ONEIL Order Number: [id number] Reading MD: Franklin Fierro MD Measurements Intervals [place] Rate: 129 P: [place]: QRS: 5 QRSD: 82 T: 3 QT: 362 QTc: 531 Interpretive Statements Atrial fibrillation Borderline T abnormalities, diffuse leads Prolonged QT interval Compared to ECG 05/08/2018 11:24:01 T-wave abnormality now present Prolonged QT interval now present Electronically Signed On 08-25-2018 6:37:03 PST by Franklin Fierro MD CM:EKGRPT:ELECTROCARDIOGRAM REPORT [id number] 0637 EASTON ARGUELLES DRAFT REPORT EASTON ONEIL DO
--- NOTE | ~2018-08-13 | PR ---
[place], [place] PROGRESS NOTE NAME: SANDRA IVORY UNIT #: [id number] ROOM: 408 DOCTOR: EVE DOWNEY,GODFREY Ramos BIRTHDATE: [birth year] DOS: 08/16/2018 NEPHROLOGY PROGRESS NOTE TIME OF SERVICE: 10:16 a.m. SUBJECTIVE: Seen in followup of ESRD. The patient is seen while undergoing hemodialysis and tolerating treatment well. Blood pressures did go down, but slightly come back up. I do not know if she was given her midodrine. I have ordered it as a p.r.n. daily prior to dialysis because of the office schedule nature. I did ensure her that she should be dialyzed 3 times a week for this volume overload that she has. She does not seem to be on board 100%. She seems like she would do it while she is in the hospital, but as an outpatient this might be more difficult and a challenge. We will continue to encourage her for this as well as a permanent access creation. Exam and other plan is unchanged. GODFREY PRADO MD CM:PNTRANS 1601 [id number] GODFREY PRADO MD 08/18/18 0406 interface
--- NOTE | ~2018-08-13 | PR ---
[place], [place] PROGRESS NOTE NAME: SANDRA IVORY UNIT #: [id number] ROOM: 408 DOCTOR: LUCIA HALLMAN MD BIRTHDATE: [birth year] DOS: 08/15/2018 SUBJECTIVE: I saw this patient yesterday and she has a severe cardiomyopathy, chronic systolic heart failure and end-stage renal disease. She dialyzes yesterday and 3 kilos of fluid was removed. Her breathing is better. She still has swelling in the legs. She made very little urine according to the nurse. She is still complaining about a lot of anterior chest pain, particularly when she lies back. PHYSICAL EXAMINATION: GENERAL: Revealed the patient is very pleasant, alert, oriented. She is very comfortable. VITAL SIGNS: Pulse is regular at 80 beats per minute, blood pressure 117/76. NECK: JVP is to be normal. LUNGS: Pretty clear. EXTREMITIES: She has a lot of edema in the lower extremities, much less than yesterday. Erythema over the shins is also less obvious now. Anterior chest wall very tender. Her weight has not been adequately obtained. Weight on 08/13/2018 was 83 kilos and yesterday was at 93 kilos. Today is 86 kilos, this is very inconsistent. IMPRESSION: 1. Severe cardiomyopathy, still decompensated. 2. End-stage renal disease. She still has substantial volume overload. She makes very little urine and is essentially dependent on removal of fluid with hemodialysis and I think she should have another dialysis run today or tomorrow and dry weight needs to be reduced by maybe 4-5 kilos. LUCIA HALLMAN MD CM:PNTRANS 0636 [id number] LUCIA HALLMAN MD 09/07/18 0909 interface
--- NOTE | ~2018-08-13 | PR ---
[place], [place] PROGRESS NOTE NAME: SANDRA IVORY UNIT #: [id number] ROOM: 408 DOCTOR: LUCIA HALLMAN MD BIRTHDATE: [birth year] DOS: 08/16/2018 SUBJECTIVE: Her breathing is fine. She still has exquisitely tender chest. No palpitations. She is dialyzing now. It seems that she is probably over 10 kilos in excess weight that developed over the last several weeks. PHYSICAL EXAMINATION: GENERAL: This is a patient who is alert, oriented. NECK: JVP is normal. LUNGS: She has crackles in both lungs and rhonchi as well. Edema in the lower extremities remains severe. She is exquisitely tender over the entire part of the left chest, even rubbing the skin causes intense pain as if she has some neuropathy. IMPRESSION AND PLAN: The patient still remains volume overloaded, but the plan is to do some extra runs to bring her down to her dry weight. No new other recommendations. LUCIA HALLMAN MD CM:PNTRANS 1120 [id number] LUCIA HALLMAN MD 09/07/18 0911 interface
--- NOTE | ~2018-08-13 | CON ---
[place], [place] REPORT OF CONSULTATION NAME: SANDRA IVORY UNIT #: [id number] ROOM: 408 DOCTOR: LUCIA HALLMAN MD BIRTHDATE: [birth year] DOS: 08/14/2018 HISTORY OF PRESENT ILLNESS: This is a 67-year-old -[place] woman whom I saw in this hospital on the in April of this year i.e., 3 months ago. She has a history of chronic atrial fibrillation and a rapid ventricular rate. Cardiomyopathy with an EF of 25-30%, chronic systolic heart failure and also has end-stage renal disease with a GFR of 15 mL per minute. She dialyzes twice a week. She has never had COPD, cancer, stroke, diabetes mellitus or heart attack. She has never smoked cigarettes. No use of alcohol. She had DVT in the past and has had appendectomy, bowel resection and partial hysterectomy. She came to the hospital because of anterior chest pain that developed about 4 days ago. It is rather severe. It is persistent and has not let up since it came on. It is worse when she lies down and when she sits up it is much better, but when she moves her torso it does get worse. She has had no fever, chills or shivering and has slight sore throat couple of days ago. She has not had any orthopnea and her swelling in the legs has been getting worse. HOME MEDICATIONS: Included warfarin 2.5 mg daily, metoprolol 25 t.i.d., furosemide 40 mg b.i.d. and vitamin B complex and Tylenol. PHYSICAL EXAMINATION: GENERAL: This reveals a patient who is somewhat distressed because of pain. She is alert, oriented. She is comfortable. She is not tachypneic. VITAL SIGNS: Temperature is normal, pulse is irregular at 96, blood pressure 110/74. JVP is significantly elevated. EXTREMITIES: She has severe edema of the legs and also mild edema of the buttocks. LUNGS: Percussion note is normal. Auscultation reveals few crackles in the bases, mostly on the left side. Anterior chest is exquisitely tender around the sternum. There is no lateral chest wall tenderness. DIAGNOSTIC STUDIES: ECGs have shown atrial fibrillation with somewhat fast heart rate. Troponin levels are less than 0.015. BUN is 78, creatinine 3.14 with an estimated GFR of 15. Sodium 138, potassium 3.8, serum albumin is 2.6 g/dL. Hemoglobin is 10.5 g/dL. Chest x-ray was reviewed and it showed mild congestion. IMPRESSION: 1. Acute chest pain is coming from the chest wall, which is exquisitely tender. Her breathing is now clear. She did not have any trauma to the anterior part of the chest. I do not believe this is acute pericarditis, although her pain seemed to get worse when she lies back. She has ruled out for acute myocardial infarction. 2. Severe cardiomyopathy with chronic systolic heart failure with decompensation. 3. End-stage renal disease. The patient is fairly volume overloaded. RECOMMENDATIONS: Increase metoprolol to 100 mg b.i.d. to control the heart rate [place], [place] REPORT OF CONSULTATION NAME: SANDRA IVORY UNIT #: [id number] ROOM: 408 DOCTOR: LUCIA HALLMAN MD BIRTHDATE: [birth year] adequately. She is not on JESSICA inhibitor because of her severe renal insufficiency. Since she dialyzes twice a day, I think it is a good idea to put her on a small dose of lisinopril for remodeling of cardiomyopathy in a favorable way. In my last consult, I had recommended doing a Lexiscan Cardiolite study to exclude coronary artery disease as a cause for cardiomyopathy. Her heart rate has been better I believe since she was here last time 3 months ago. You have already ordered an echocardiogram with contrast, which is a good idea to see if her LV function has improved. If it remains below 30, I think one may want to think about implantation of an AICD. Anemia is chronic and most likely from renal failure. I thank you for this consult. LUCIA HALLMAN MD CM:CONSTR:REPORT OF CONSULTATION 0743 08/14/18 1217 interface
--- NOTE | ~2018-08-13 | EKG ---
[place], [place] ELECTROCARDIOGRAM REPORT NAME: SANDRA IVORY UNIT #: [id number] ROOM: 408 DOCTOR: RAMYA DRAFT REPORT BIRTHDATE: [birth year] [facility] Test Date: 2018-08-13 Test Time: 19:37:55 Pat Name: SANDRA IVORY Department: Room: 408 Gender: F Forensic Medical Examiner: Tessa Cornejo : 1950 Requested By: EASTON ONEIL Order Number: [id number] Reading MD: Ed Denney MD Measurements Intervals [place] Rate: 107 P: [place]: QRS: 13 QRSD: 76 T: -9 QT: 387 QTc: 517 Interpretive Statements Atrial fibrillation with RVR Borderline T abnormalities, diffuse leads Compared to ECG 05/08/2018 11:24:01 Electronically Signed On 08-17-2018 11:51:09 PST by Ed Denney MD CM:EKGRPT:ELECTROCARDIOGRAM REPORT [id number] EASTON ARGUELLES DRAFT REPORT EASTON ONEIL DO
[2018-08-13 13:20] LABS: BASO % 0.3 % (0.0-1.0); EOS % 0.4 % (1.0-4.0); HEMATOCRIT 33.4 % (37.0-47.0); HEMOGLOBIN 10.5 g/dl (12.0-16.0); LYMPH # 0.8 10*3/uL (1.3-4.4); LYMPH % 10.1 % (27.0-41.0); MEAN CELL VOLUME 96.3 fl (81.0-99.0); MEAN CORPUSCULAR HGB 30.3 pg (27.0-31.0); MEAN CORPUSCULAR HGB CONC 31.4 g/dl (33.0-37.0); MEAN PLATELET VOLUME 11.9 fl (9.6-12.3); MONO # 0.8 10*3/uL (0.1-1.0); MONO % 10.9 % (3.0-9.0); NEUT # 5.9 10*3/uL (2.3-7.9); NEUT % 77.8 % (47.0-73.0); PLATELET COUNT AUTOMATED 208 10*3/uL (130-400); RED BLOOD COUNT 3.47 10*6/uL (4.10-5.10); RED CELL DISTRI WIDTH 18.1 % (0-14.5); WHITE BLOOD COUNT 7.6 10*3/uL (4.8-10.8)
[2018-08-13 13:30] LABS: ACT PARTIAL THROMBO TIME 33.5 SECONDS (20.8-31.5); INTERNATIONAL NORM RATIO 1.7 (2.0-3.5)
[2018-08-13 13:45] LABS: ALBUMIN 2.6 gm/dl (3.1-4.5); ALKALINE PHOSPHATASE 126 U/L (45-117); BUN 78 mg/dl (7-24); CHLORIDE 104 mmol/L (98-107); CREATININE 3.14 mg/dL (0.55-1.02); SGOT/AST 36 IU/L (3-35); SODIUM 138 mmol/L (136-145); TOTAL PROTEIN 6.6 gm/dL (6.4-8.2)
[2018-08-13 13:52] LABS: POTASSIUM 3.8 mmol/L (3.5-5.1); SGPT/ALT 36 U/L (12-78); TROPONIN I < 0.015 ng/ml (<0.045)
[2018-08-13 15:12] VITALS: BP 105/62
[2018-08-13 15:30] VITALS: BP 101/74
--- NOTE | 2018-08-13 16:10 | NUR ---
A 67, admitted to 4E, under the services of NIELS sEcobar MD with a diagnosis of AC HEART FAILURE. Chief complaint is CHEST PAIN. Patient arrived via ambulatory from ER. Monitor applied. Initial assessment completed. Vital signs taken and recorded. NIELS ESCOBAR MD notified of admission to the unit. Orders received. See assessment for past medical history, medications and allergies. Patient and/or family oriented to unit. [facility] visitation policy reviewed. Clothing/patient valuable form completed. ISHAN MALHOTRA
--- NOTE | 2018-08-13 19:23 | NUR ---
DR. PRADO AND DR. HALLMAN WERE CALLED ABOUT CONSULTS FOR THE PATIENT.
--- NOTE | 2018-08-13 19:53 | NUR ---
SPOKE WITH DR. PRADO ABOUT PATIENTS CONSULT. UPDATED HIM ON PATIENT CONDITION. HE STATED THAT SHE WILL BE GETTING DIALYSIS TOMORROW AND TO CALL THE BENEFITS REPRESENTATIVE DIALYSIS NURSE AND LET HER KNOW AND TO CALL HIM FOR ORDERS
--- NOTE | 2018-08-13 19:57 | NUR ---
FLOATLIGHT POWDER MIXER DIALYSIS NURSE KIRT HALL PAGED AT THIS TIME
[2018-08-13 20:00] VITALS: BP 96/70; BP 99/72
--- NOTE | 2018-08-13 20:00 | NUR ---
DIALYSIS NURSE NOTIFIED OF PATIENT BEING INPATIENT AND WILL BE GETTING DIALYSIS TOMORROW MORNING PER DR. PRADO
[2018-08-13 22:00] VITALS: BP 102/68
--- NOTE | 2018-08-13 23:39 | NUR ---
24 HR chart check completed.
[2018-08-14] VITALS (14 sets, daily range): BP systolic 90–126; BP diastolic 54–77
[2018-08-14 06:31] LABS: BASO % 0.2 % (0.0-1.0); EOS # 0.1 10*3/uL (0.0-0.4); EOS % 1.1 % (1.0-4.0); HEMATOCRIT 35.5 % (37.0-47.0); HEMOGLOBIN 10.8 g/dl (12.0-16.0); LYMPH # 0.8 10*3/uL (1.3-4.4); LYMPH % 12.2 % (27.0-41.0); MEAN CELL VOLUME 97.5 fl (81.0-99.0); MEAN CORPUSCULAR HGB 29.7 pg (27.0-31.0); MEAN CORPUSCULAR HGB CONC 30.4 g/dl (33.0-37.0); MEAN PLATELET VOLUME 11.4 fl (9.6-12.3); MONO # 0.8 10*3/uL (0.1-1.0); MONO % 12.2 % (3.0-9.0); NEUT # 4.8 10*3/uL (2.3-7.9); NEUT % 73.7 % (47.0-73.0); PLATELET COUNT AUTOMATED 204 10*3/uL (130-400); RED BLOOD COUNT 3.64 10*6/uL (4.10-5.10); RED CELL DISTRI WIDTH 17.8 % (0-14.5); WHITE BLOOD COUNT 6.6 10*3/uL (4.8-10.8)
[2018-08-14 06:51] LABS: CREATININE 3.01 mg/dL (0.55-1.02); POTASSIUM 3.4 mmol/L (3.5-5.1)
--- NOTE | 2018-08-14 08:00 | NUR ---
PT OFF FLOOR FOR DIALYSIS.
--- NOTE | 2018-08-14 13:20 | NUR ---
PT BACK TO FLOOR FROM DIALYSIS
--- NOTE | 2018-08-14 19:00 | NUR ---
PT RESTING IN BED WHILE WATCHING TV. SHE STATES THAT SHE IS NOT HAVING ANY PAIN AND VOICED NO CONCERNS AT THIS TIME. BED LOW, CALL LIGHT WITHIN REACH.
--- NOTE | 2018-08-14 22:32 | NUR ---
CARDIZEM DRIP DISCONTINUED DUE TO PT REFUSING TO ALLOW THE INFUSION TO COMPLETE STATING THAT SHE WAS TIRED AND DID NOT WANT TO BE HOOKED UP TO THE INFUSION PUMP ANYMORE. VTBI WAS 7ML.
[2018-08-15] VITALS: BP 117/76
--- NOTE | 2018-08-15 02:11 | NUR ---
PTS BP WAS 94/64. THE 2200 DOSES OF LISINOPRIL AND METOPROLOL WERE HELD. RECHECK BP WAS 117/76.
--- NOTE | 2018-08-15 03:52 | NUR ---
24 HR chart check completed.
[2018-08-15 06:35] LABS: INTERNATIONAL NORM RATIO 1.9 (2.0-3.5)
[2018-08-15 08:00] VITALS: BP 107/73
--- NOTE | 2018-08-15 08:06 | NUR ---
CALLED AT THIS TIME REGARDING HR RANGING BETWEEN 130-150'S WHILE AT REST. CHRONIC A-FIB. PT ASYMPTOMATIC. BP 108/76. THIS NURSE ADMINISTERED 10AM METOPROLOL DOSE. WILL CONTINUE TO MONITOR. CALL LIGHT WITHIN REACH.
--- NOTE | 2018-08-15 09:34 | NUR ---
HR NOW RANGING BETWEEN 100'S-120. WILL CONTINUE TO MONITOR.
--- NOTE | 2018-08-15 10:11 | NUR ---
NOTIFIED REGARDING HR STILL UP TO 120-130'S AT REST. NEW ORDERS RECEIVED.
--- NOTE | 2018-08-15 10:22 | NUR ---
IV LOPRESSOR GIVEN SLOWLY AT THIS TIME PER . HR RANGING BETWEEN 120-140'S. WILL MONITOR EFFECTIVENESS.
--- NOTE | 2018-08-15 10:45 | NUR ---
HR NOW 100-115. WILL CONTINUE TO MONITOR.
[2018-08-15 12:00] VITALS: BP 109/68
--- NOTE | 2018-08-15 12:35 | NUR ---
SECOND DOSE OF IV LOPRESSOR GIVEN FOR HR >100. HR AT REST 120-130'S. WILL MONITOR EFFECTIVENESS. PT ASYMPTOMATIC.
--- NOTE | 2018-08-15 13:31 | NUR ---
LOPRESSOR EFFECTIVE AT THIS TIME. HR NOW LOW 100'S. PT RESTING COMFORTABLY IN BED. WILL CONTINUE TO MONITOR.
--- NOTE | 2018-08-15 15:05 | NUR ---
CALLED AGAIN REGARDING HR INCREASING AGAIN TO 130'S AT REST. NEW ORDERS RECEIVED.
[2018-08-15 16:00] VITALS: BP 112/69
--- NOTE | 2018-08-15 16:16 | NUR ---
HR LOW 100'S. WILL CONTINUE TO MONITOR.
[2018-08-15 17:01] LABS: BILIRUBIN NEGATIVE (NEGATIVE); BLOOD 3+ (NEGATIVE); CLARITY CLEAR (CLEAR); COLOR YELLOW (YELLOW); GLUCOSE NEGATIVE (NEGATIVE); KETONE NEGATIVE (NEGATIVE); LEUKO ESTERASE 1+ (NEGATIVE); NITRITE NEGATIVE (NEGATIVE); PH 5.5 (5.0-9.0); UROBILINOGEN 0.2 E.U./dl (0.2-1.0)
[2018-08-15 17:09] LABS: BACTERIA 1+; EPITHELIAL CELLS 25-30; RBC TNTC rbc/hpf (0-2); WBC TNTC wbc/hpf (0-5)
--- NOTE | 2018-08-15 17:10 | NUR ---
HR 90'S PER CM. WILL CONTINUE TO MONITOR.
[2018-08-15 20:00] VITALS: BP 85/61
--- NOTE | 2018-08-15 20:00 | NUR ---
PT AMBULATING IN ROOM TO BR. NO C/O VOICED AT PRESENT. BEDSIDE SHIFT REPORT GIVEN AT THIS TIME.
[2018-08-15 21:56] VITALS: BP 108/54
[2018-08-16] VITALS: BP 106/84
--- NOTE | 2018-08-16 05:01 | NUR ---
ASSUMED CARE OF PATIENT AT THIS TIME. RECEIVED THOROUGH BEDSIDE REPORT FROM PRATIK MARTIN. PATIENT RESTING COMFORTABLY IN HER BED, AWAKE. DENIES ANY COMPLAINTS AT THIS TIME. NO S/S OF DISTRESS. RESP EASY. CALL LIGHT WITHIN REACH.
--- NOTE | 2018-08-16 06:23 | NUR ---
PATIENT STATES THAT BLINDS FELL WHILE TRYING TO OPEN THEM. PATIENT STATES THAT BLINDS DID NOT HURT HER, THAT THEY MOSTLY HIT WINDOW AND DRAPED OVER HER HEAD. PATIENT DOES NOT APPEAR TO BE HARMED IN ANY WAY. THIS NURSE CHECKED PATIENT OVER AND CALLED MEDICAL PATHOLOGIST TO LET HER KNOW WHAT HAD HAPPENED. PATIENT DENIES ANY DISCOMFORTS AT THIS TIME. CALL LIGHT WITHIN REACH.
[2018-08-16 06:40] LABS: BASO % 0.2 % (0.0-1.0); EOS # 0.1 10*3/uL (0.0-0.4); EOS % 1.1 % (1.0-4.0); HEMATOCRIT 36.2 % (37.0-47.0); HEMOGLOBIN 10.9 g/dl (12.0-16.0); LYMPH # 1.2 10*3/uL (1.3-4.4); LYMPH % 23.2 % (27.0-41.0); MEAN CELL VOLUME 98.4 fl (81.0-99.0); MEAN CORPUSCULAR HGB 29.6 pg (27.0-31.0); MEAN CORPUSCULAR HGB CONC 30.1 g/dl (33.0-37.0); MEAN PLATELET VOLUME 10.8 fl (9.6-12.3); MONO # 0.8 10*3/uL (0.1-1.0); MONO % 14.3 % (3.0-9.0); NEUT # 3.2 10*3/uL (2.3-7.9); NEUT % 60.8 % (47.0-73.0); PLATELET COUNT AUTOMATED 216 10*3/uL (130-400); RED BLOOD COUNT 3.68 10*6/uL (4.10-5.10); RED CELL DISTRI WIDTH 17.6 % (0-14.5); WHITE BLOOD COUNT 5.3 10*3/uL (4.8-10.8)
[2018-08-16 07:08] LABS: ALBUMIN 2.8 gm/dl (3.1-4.5); CREATININE 2.57 mg/dL (0.55-1.02); PHOSPHOROUS 5.1 mg/dL (2.5-4.9); POTASSIUM 3.9 mmol/L (3.5-5.1); TOTAL PROTEIN 6.7 gm/dL (6.4-8.2)
[2018-08-16 07:12] LABS: INTERNATIONAL NORM RATIO 2.2 (2.0-3.5)
--- NOTE | 2018-08-16 09:00 | NUR ---
Civil Technician in to see patient. She is currently not in her room. Will follow up at a later time.
--- NOTE | 2018-08-16 09:37 | NUR ---
patient not available for echo, in dialysis till 1pm.
--- NOTE | 2018-08-16 13:50 | NUR ---
Hydraulic Assembler in to talk to patient. Patient states lives at home alone with her daughter coming and going and her neighbor checking in on her. She states she is never alone. She has custody of two 3 yo grandsons. She also takes care of her 8 yo granddaughter after school. There are basement steps in the home. Physician: Dr. Franklin Fierro Pharmacy: [address] [place] [facility] services: none Patient's level of ADLs: INDEPENDENT Patient has working utilities: yes DME: none Follow-up physician's appointment after d/c: she prefers to make her own follow up appt after discharge Does patient want to access PORTAL?: no Discharge plan discussed with patient. She lives at home alone. She is independent in her ADLs and ambulation. Discussed home health care services and she denies any home needs. When medically stable she will be discharged to home. She currently has dialysis on and Sat at 10:45 am. She is considering picking up a 3rd day as that is what the physician thinks she should do but she is unsure of what days or times. Her daughter transports her to and from dialysis. MALCOLM CRUZ
[2018-08-16 16:00] VITALS: BP 102/65
[2018-08-16 20:00] VITALS: BP 95/65
[2018-08-16 21:45] VITALS: BP 94/70
[2018-08-17] VITALS: BP 101/75
[2018-08-17 06:47] LABS: BASO % 0.4 % (0.0-1.0); EOS # 0.1 10*3/uL (0.0-0.4); EOS % 1.2 % (1.0-4.0); HEMATOCRIT 37.3 % (37.0-47.0); LYMPH # 1.2 10*3/uL (1.3-4.4); LYMPH % 22.5 % (27.0-41.0); MEAN CELL VOLUME 98.9 fl (81.0-99.0); MEAN CORPUSCULAR HGB 29.2 pg (27.0-31.0); MEAN CORPUSCULAR HGB CONC 29.5 g/dl (33.0-37.0); MEAN PLATELET VOLUME 11.3 fl (9.6-12.3); MONO # 0.8 10*3/uL (0.1-1.0); MONO % 15.1 % (3.0-9.0); NEUT # 3.1 10*3/uL (2.3-7.9); NEUT % 60.6 % (47.0-73.0); PLATELET COUNT AUTOMATED 211 10*3/uL (130-400); RED BLOOD COUNT 3.77 10*6/uL (4.10-5.10); RED CELL DISTRI WIDTH 17.7 % (0-14.5); WHITE BLOOD COUNT 5.1 10*3/uL (4.8-10.8)
[2018-08-17 07:20] LABS: INTERNATIONAL NORM RATIO 2.4 (2.0-3.5)
[2018-08-17 07:24] LABS: ALBUMIN 2.8 gm/dl (3.1-4.5); CREATININE 2.09 mg/dL (0.55-1.02); PHOSPHOROUS 4.2 mg/dL (2.5-4.9); POTASSIUM 4.4 mmol/L (3.5-5.1); TOTAL PROTEIN 6.7 gm/dL (6.4-8.2)
--- NOTE | 2018-08-17 07:54 | NUR ---
ASSUMED CARE OF PATIENT. RECEIVED REPORT FROM PRATIK PALM. PATIENT RESTING IN HER BED. NO S/S OF DISTRESS. CALL LIGHT WITHIN REACH.
--- NOTE | 2018-08-17 08:34 | NUR ---
PATIENT STATES THAT IF SHE IS NOT DISCHARGED TODAY, SHE WILL LEAVE AMA.
[2018-08-17 12:00] VITALS: BP 101/72
--- NOTE | 2018-08-17 12:00 | NUR ---
PATIENT ADAMANT ABOUT LEAVING TODAY, REQUESTED TO LEAVE AMA. EDUCATED THE PATIENT ON THE POTENTIAL RISKS INVOLVED WITH LEAVING THE HOSPITAL AT THIS TIME AGAINST THE ADVICE OF THE PHYSICIAN, AND SHE VERBALIZED THAT SHE UNDERSTOOD THE RISKS. PATIENT STATES THAT HER "DAUGHTER GOES BACK TO WORK TOMORROW AND HAS NOONE TO WATCH THE KIDS." NURSING OFFICE MESSENGER HELPER AND DR MACDONALD NOTIFIED OF PATIENT LEAVING AMA.
--- NOTE | 2018-08-17 12:31 | NUR ---
Patient signed out AMA. Patient encouraged to stay and advised of possible consequences of premature discharge. Physician DR MACDONALD and artificial breeding ranch supervisor CHANTALE LOZANO notified. Patient instructed what to do regarding care post-departure from the hospital; emergency phone numbers provided. Patent was accompanied by DAUGHTER. HEMANT TOMLINSON
== END 2018-08-17 12:31 | disposition left against medical advice (07) | DRG 682 ==
LOC: ED 12:46 → 4E 14:37 → EDHOLD 14:37 → 4E 15:03
PROVIDERS: Emergency Medicine; Internal Medicine Nephrology; ADMIT Internal Medicine
PROC: 5A1D70Z Performance of Urinary Filtration, Intermittent, Less than 6 Hours Per Day (ICD-10-PCS; principal; 2018-08-14)
PROC: 5A1D70Z Performance of Urinary Filtration, Intermittent, Less than 6 Hours Per Day (ICD-10-PCS; 2018-08-16)
DX: N17.0 Acute kidney failure with tubular necrosis (principal); I50.43 Acute on chronic combined systolic (congestive) and diastolic (congestive) heart failure; I13.2 Hypertensive heart and chronic kidney disease with heart failure and with stage 5 chronic kidney disease, or end stage renal disease; I42.9 Cardiomyopathy, unspecified; N18.6 End stage renal disease; I77.6 Arteritis, unspecified; K21.9 Gastro-esophageal reflux disease without esophagitis; M85.80 Other specified disorders of bone density and structure, unspecified site; E55.9 Vitamin D deficiency, unspecified; Z66 Do not resuscitate; Z51.5 Encounter for palliative care; I48.2 Chronic atrial fibrillation; R07.89 Other chest pain; D63.1 Anemia in chronic kidney disease; I73.9 Peripheral vascular disease, unspecified; Z53.21 Procedure and treatment not carried out due to patient leaving prior to being seen by health care provider; Z99.2 Dependence on renal dialysis; Z86.718 Personal history of other venous thrombosis and embolism; Z87.01 Personal history of pneumonia (recurrent); Z87.440 Personal history of urinary (tract) infections; Z90.49 Acquired absence of other specified parts of digestive tract; Z90.710 Acquired absence of both cervix and uterus; Z80.9 Family history of malignant neoplasm, unspecified; Z82.49 Family history of ischemic heart disease and other diseases of the circulatory system; Z88.0 Allergy status to penicillin; Z88.2 Allergy status to sulfonamides; Z91.048 Other nonmedicinal substance allergy status; Z88.8 Allergy status to other drugs, medicaments and biological substances; Z79.899 Other long term (current) drug therapy; Z79.01 Long term (current) use of anticoagulants

== ENCOUNTER → 2018-09-02 | Outpatient (CLI) | payer MEDICARE | LOC: CARD 00:59 | DX: I08.1 Rheumatic disorders of both mitral and tricuspid valves (principal); J90 Pleural effusion, not elsewhere classified; J84.9 Interstitial pulmonary disease, unspecified; R91.8 Other nonspecific abnormal finding of lung field; I48.2 Chronic atrial fibrillation; I27.20 Pulmonary hypertension, unspecified; Z90.710 Acquired absence of both cervix and uterus; Z90.49 Acquired absence of other specified parts of digestive tract ==

== ENCOUNTER 2018-11-18 11:01 | Emergency (ER) | payer MEDICARE ==
[~2018-11-18] VITALS: Ht 177.8 cm; Wt 64.0 kg
[2018-11-18] MEDS ORDERED: PREDNISONE20 M1 PO (13:17)
== END 2018-11-18 13:35 | disposition home or self-care (01) ==
LOC: ED 11:01
DX: S39.012A Strain of muscle, fascia and tendon of lower back, initial encounter (principal); M54.6 Pain in thoracic spine; M25.551 Pain in right hip; M19.90 Unspecified osteoarthritis, unspecified site; G89.29 Other chronic pain; I48.91 Unspecified atrial fibrillation; I11.0 Hypertensive heart disease with heart failure; I50.9 Heart failure, unspecified; Z88.0 Allergy status to penicillin; Z88.2 Allergy status to sulfonamides; Z91.048 Other nonmedicinal substance allergy status; Z88.8 Allergy status to other drugs, medicaments and biological substances; Z79.899 Other long term (current) drug therapy; Z79.01 Long term (current) use of anticoagulants; Z90.49 Acquired absence of other specified parts of digestive tract; Z90.710 Acquired absence of both cervix and uterus; W18.39XA Other fall on same level, initial encounter; Y93.89 Activity, other specified; Y92.89 Other specified places as the place of occurrence of the external cause; Y99.8 Other external cause status

== ENCOUNTER 2018-11-24 11:40 | Inpatient (IN) | payer MEDICARE ==
[2018-11-24] VITALS (39 sets, daily range): BP systolic 78–134; BP diastolic 22–74
[~2018-11-24] VITALS: Ht 152.4 cm; Wt 68.6 kg
--- NOTE | ~2018-11-24 | EKG ---
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
[~2018-11-24 11:40] MED LIST changes: +PREDNISONE20 M1 PO
[2018-11-24 12:21] LABS: HEMATOCRIT 36.7 % (37.0-47.0); HEMOGLOBIN 12.1 g/dl (12.0-16.0); MEAN CELL VOLUME 85.5 fl (81.0-99.0); MEAN CORPUSCULAR HGB 28.2 pg (27.0-31.0); MEAN PLATELET VOLUME 13.5 fl (9.6-12.3); NUCLEATED RED BLOOD CELL 0.1 % (0.0-0.0); PLATELET COUNT AUTOMATED 133 10*3/uL (130-400); RED BLOOD COUNT 4.29 10*6/uL (4.10-5.10); RED CELL DISTRI WIDTH 18.5 % (0-14.5); WHITE BLOOD COUNT 21.2 10*3/uL (4.8-10.8)
[2018-11-24 12:39] LABS: ALBUMIN 2.2 gm/dl (3.1-4.5); ALKALINE PHOSPHATASE 153 U/L (45-117); BUN 91 mg/dl (7-24); CHLORIDE 94 mmol/L (98-107); CREATININE 5.56 mg/dL (0.55-1.02); LIPASE 17 U/L (73-393); PHOSPHOROUS 6.3 mg/dL (2.5-4.9); POTASSIUM 3.9 mmol/L (3.5-5.1); SGOT/AST 48 IU/L (3-35); SGPT/ALT 72 U/L (12-78); SODIUM 131 mmol/L (136-145); TOTAL PROTEIN 6.5 gm/dL (6.4-8.2)
[2018-11-24 12:40] LABS: TROPONIN I < 0.015 ng/ml (<0.045)
[2018-11-24 12:41] LABS: BURR CELLS MANY; PLATELET SUFFICIENCY NORMAL (NORMAL); TOTAL CELLS COUNTED 100 #CELLS; TOXIC GRANULATION MODERATE
[2018-11-24 12:52] LABS: BILIRUBIN 2+ (NEGATIVE); BLOOD 3+ (NEGATIVE); CLARITY TURBID (CLEAR); COLOR BROWN (YELLOW); GLUCOSE NEGATIVE (NEGATIVE); KETONE 1+ (NEGATIVE); LEUKO ESTERASE 3+ (NEGATIVE); NITRITE POSITIVE (NEGATIVE); PH 6.5 (5.0-9.0); SPECIFIC GRAVITY 1.015 (1.005-1.030)
[2018-11-24 13:20] LABS: RBC TNTC rbc/hpf (0-2); WBC TNTC wbc/hpf (0-5)
[2018-11-24 13:51] LABS: URINE AMPHETAMINES < 1000 (1000ng/ml); URINE BARBITURATES < 200 (200ng/ml); URINE BENZODIAZEPINES < 200 (200ng/ml); URINE CANNABINOIDS (THC) < 50 (50ng/ml); URINE COCAINE < 300 (300ng/ml); URINE METHADONE < 300 (300ng/ml); URINE OPIATES < 300 (300ng/ml)
[2018-11-24 13:52] LABS: URINE PHENCYCLIDINE < 25 (25ng/ml)
--- NOTE | 2018-11-24 14:05 | NUR ---
REPORT FROM Mariposa HERRERA LPN.
--- NOTE | 2018-11-24 15:05 | NUR ---
A 68YR OLD female, admitted to ICCU, under the services of Dr. TORRES DOWNEY,[facility] with a diagnosis of sepsis, renal failure Chief complaint is swelling of hands and feet, inability to ambulate and hallucinations. Patient arrived via from ER. Monitor applied. Initial assessment completed. Vital signs taken and recorded. See assessment for past medical history, medications and allergies. Patient and/or family oriented to unit. [facility] visitation policy reviewed. Clothing/patient valuable form completed. CHELSEA SUBRAMANIAN L
--- NOTE | 2018-11-24 16:45 | NUR ---
Dr. Minor text Dr. Prince as to consultation. US KAMAR and ARELIS in progress.
--- NOTE | 2018-11-24 19:20 | NUR ---
mEDICATED FOR C/O 04/26 . Medicated and effective to reduce pain to 0/10. Per Dr. Minro . to have dialysis in AM.
--- NOTE | 2018-11-24 20:00 | NUR ---
SPOKE WITH DR. PACHECO REGARDING PATIENT NOT VOIDING T/O PAST SHIFT. PATIENT RECEIVED BOLUSX2 WELL OTHER INFUSIONS WITH NO OUTPUT. ORDERS RECEIVED TO BLADDER SCAN AND PLACE VARELA CATHETER IF VOLUME IS >500CC.
--- NOTE | 2018-11-24 20:30 | NUR ---
BLADDER SCAN SHOWING 0CC T/O. NO VARELA NEEDED AT THIS TIME. WILL CONTINUE TO MONITOR AND REASSESS.
[2018-11-25] VITALS (57 sets, daily range): BP systolic 68–158; BP diastolic 27–76
[2018-11-25 06:13] LABS: HEMATOCRIT 29.6 % (37.0-47.0); HEMOGLOBIN 9.4 g/dl (12.0-16.0); MEAN CELL VOLUME 86.5 fl (81.0-99.0); MEAN CORPUSCULAR HGB 27.5 pg (27.0-31.0); MEAN CORPUSCULAR HGB CONC 31.8 g/dl (33.0-37.0); NUCLEATED RED BLOOD CELL 0.2 % (0.0-0.0); PLATELET COUNT AUTOMATED 88 10*3/uL (130-400); RED BLOOD COUNT 3.42 10*6/uL (4.10-5.10); RED CELL DISTRI WIDTH 18.4 % (0-14.5); WHITE BLOOD COUNT 11.1 10*3/uL (4.8-10.8)
[2018-11-25 06:27] LABS: CREATININE 5.34 mg/dL (0.55-1.02); PHOSPHOROUS 5.5 mg/dL (2.5-4.9)
[2018-11-25 06:33] LABS: ACT PARTIAL THROMBO TIME 61.4 SECONDS (20.8-31.5)
[2018-11-25 06:35] LABS: INTERNATIONAL NORM RATIO 9.9 (2.0-3.5)
[2018-11-25 06:48] LABS: BURR CELLS MANY; PLATELET SUFFICIENCY LOW (NORMAL); TOTAL CELLS COUNTED 100 #CELLS; TOXIC GRANULATION MODERATE
[2018-11-25 06:49] LABS: POLYCHROMASIA SLIGHT; SCHISTOCYTES FEW; VACUOLATION OF NEUTROPHILS SLIGHT
--- NOTE | 2018-11-25 10:13 | NUR ---
Nursing screen received and chart review completed. Patient to have hospice consult. Rose Morrison OTR/l
--- NOTE | 2018-11-25 11:00 | NUR ---
[employer] Civil Engineer in to see patient. Discussed with nurse and resident palliative care order vs hospice. [facility] nurse, Lorin, is currently here discussing hospice with the family. Discharge plan is hospice.
--- NOTE | 2018-11-25 11:49 | NUR ---
0800 Full assessment. hypotensive. Titrating neftali up. 0900 Dtr was called RE: possible MLC placement and addition of second vasopressor. Stated would be in to talk w/ mother. Dialysis on hold as extreme hypotension continues , [facility] RN spoke w/ Dr. Prince. Transfer and continous dialysis was discussed w/ pt. who stated no she did not want transferred. Stated "If i I want to here" 929 Dr. Minor here and spoke w/ dtr. as to Plan of care . Levophed was started per her consent and Hospice was contacted 1100 steel erecting pusher in and spoke at length with dtr. and pt. . Agreeable to end of life care. Dr Prince in and agreeable with plan. Titrating Neftali down.
--- NOTE | 2018-11-25 11:50 | NUR ---
Faxed palliative care order to [facility].
[2018-11-29 00:08] LABS: ADENOVIRUS Negative (Negative); INFLUENZA A Negative (Negative); INFLUENZA B Negative (Negative); METAPNEUMOVIRUS Negative (Negative); PARAINFLUENZA 1 Negative (Negative); PARAINFLUENZA 2 Negative (Negative); PARAINFLUENZA 3 Negative (Negative); RHINOVIRUS Negative (Negative); RSV A Negative (Negative); RSV B Negative (Negative)
[2018-11-30 08:09] LABS: ADENOVIRUS Negative (Negative); INFLUENZA A Negative (Negative); INFLUENZA B Negative (Negative); METAPNEUMOVIRUS Negative (Negative); PARAINFLUENZA 1 Negative (Negative); PARAINFLUENZA 2 Negative (Negative); PARAINFLUENZA 3 Negative (Negative); RHINOVIRUS Negative (Negative); RSV A Negative (Negative); RSV B Negative (Negative)
== END 2018-11-25 14:10 | disposition hospice, home (50) | DRG 871 ==
LOC: ED 11:40 → EDHOLD 14:06 → ICCU 14:06
PROVIDERS: Internal Medicine; Nurse Practitioner Family; ADMIT Internal Medicine
PROC: 30233K1 Transfusion of Nonautologous Frozen Plasma into Peripheral Vein, Percutaneous Approach (ICD-10-PCS; principal; 2018-11-24)
PROC: 5A1D70Z Performance of Urinary Filtration, Intermittent, Less than 6 Hours Per Day (ICD-10-PCS; principal; 2018-11-24)
DX: A41.89 Other specified sepsis (principal); R65.21 Severe sepsis with septic shock; J18.1 Lobar pneumonia, unspecified organism; E43 Unspecified severe protein-calorie malnutrition; N18.6 End stage renal disease; N30.01 Acute cystitis with hematuria; D68.59 Other primary thrombophilia; N17.9 Acute kidney failure, unspecified; E87.1 Hypo-osmolality and hyponatremia; I82.409 Acute embolism and thrombosis of unspecified deep veins of unspecified lower extremity; I50.40 Unspecified combined systolic (congestive) and diastolic (congestive) heart failure; I13.0 Hypertensive heart and chronic kidney disease with heart failure and stage 1 through stage 4 chronic kidney disease, or unspecified chronic kidney disease; I95.89 Other hypotension; E78.2 Mixed hyperlipidemia; E87.8 Other disorders of electrolyte and fluid balance, not elsewhere classified; R73.9 Hyperglycemia, unspecified; E83.39 Other disorders of phosphorus metabolism; E83.41 Hypermagnesemia; I48.2 Chronic atrial fibrillation; I73.9 Peripheral vascular disease, unspecified; K21.9 Gastro-esophageal reflux disease without esophagitis; I77.6 Arteritis, unspecified; M85.80 Other specified disorders of bone density and structure, unspecified site; D63.1 Anemia in chronic kidney disease; Z99.2 Dependence on renal dialysis; Z88.0 Allergy status to penicillin; Z88.2 Allergy status to sulfonamides; Z88.8 Allergy status to other drugs, medicaments and biological substances; Z79.899 Other long term (current) drug therapy; Z90.49 Acquired absence of other specified parts of digestive tract; Z90.710 Acquired absence of both cervix and uterus; Z82.49 Family history of ischemic heart disease and other diseases of the circulatory system